=== PATIENT | male | born 1975 | race Caucasian/White ===

== ENCOUNTER → 2017-10-18 15:38 | Outpatient (REF) | payer SELFPAY ==
[2017-10-18 16:20] LABS: Add Manual Diff / Slide Review NO; Basophils Percent Auto 0.4 % (0-2); Eosinophils Percent Auto 3.3 % (2-4); Hematocrit 44.4 % (41-53); Hemoglobin 15.8 g/dL (13.5-17.5); Mean Corpuscular HGB Conc 35.5 % (30-36); Mean Corpuscular Hemoglobin 33.6 PG (26-34); Mean Corpuscular Volume 94.8 fL (80-100); Monocytes Percent Auto 8.3 % (3-14); Neutrophils Absolute Auto 5 /uL (3000-5900); Platelet Count 198 X10^3/uL (150-400); Red Blood Cell Count 4.68 X10^6/uL (4.5-5.9); Red Cell Distribution Width 12.8 % (11.6-14.8); White Blood Cell Count 7.8 X10^3/uL (4.5-11.0)
== END ==
LOC: LAB 15:38
DX: Z00.00 Encounter for general adult medical examination without abnormal findings (principal)
CPT/HCPCS: 85025

== ENCOUNTER 2020-10-29 07:42 | Outpatient (RCR) | payer OTHER, SELFPAY ==
--- NOTE | 2020-10-29 13:22 | PT.OIE ---
Current Diagnoses Strain of muscle, fascia and tendon at neck level, initial encounter (10/29/20) Strain of muscle, fascia and tendon at neck level, subsequent encounter (10/29/20) Strain of muscle and tendon of back wall of thorax, initial encounter (10/29/20) Strain of muscle, fascia and tendon of lower back, initial encounter (10/29/20) Visit Care Team Role Provider Type Samson Bradford MD Attending Provider Non-Staff Referring Provider Specialty: Family Practice Address: [address] [place] [address], [facility], [place] [address], [place], [facility] Email: Physical Therapy Initial Evaluation PT-OP-A Visit Information Start: 10/29/20 12:53 Freq: Status: Active Protocol: Document 10/29/20 12:54 OF (Rec: 10/29/20 13:21 OF [id number]) Out-Patient Physical Therapy Visit Information Visit Information Visit Type Initial Evaluation Visit Start Time 08:05 Visit Stop Time 08:52 Total Visit Minutes 47 Visit Number 1 Evaluation Information Evaluation Date 10/29/20 PT-OP-B Current Condition Start: 10/29/20 12:53 Freq: Status: Active Protocol: Document 10/29/20 12:54 OF (Rec: 10/29/20 13:21 OF [id number]) Current Condition History of Current Condition Onset Date 08/22/20 History of Current Condition Pt works at a [id number]. He states he was cleaning a tank while walking he slipped and fell face first onto the floor . He denies LOC or hitting his head. States he has been receiving tx at another clinic for whiplash Prior Treatments and Tests prior tx at separate clinic, notes not available at time of evaluation. Treatment Goals Patient/Caregiver Goals get back to normal Prior Functional Status Baseline Function- ADL's Independent Baseline Function- Mobility Independent Baseline Function- Work/School I within community, enjoys fishing Current Functional Impairments (Reported) Functional Limitations- Work/School pt states he has been on light duty since accident PT-OP-C Subjective Start: 10/29/20 12:53 Freq: Status: Active Protocol: Document 10/29/20 12:54 OF (Rec: 10/29/20 13:21 OF [id number]) OP-PT Subjective Patient Comments Patient Comments Pt states my lower back is fine, my arms are fine, I have my own stretches I do. My neck is getting better, I only get headaches when I drive. Patient Reported Progress Improving Patient Questionnaires Neck Disability Index Neck Disability Index Impairment 40 to 59% Impaired (Score 20- 29) OP-PT Pain Assessment Pain Assessment Grid Paper Pain Assessment Grid Completed Yes: neck, mid back, lumbar. Pt denies pain upon assessment , states it can be 8 Home Pain Medication Use Pain Medications Used Yes: occasional Aleve, limited relief PT-OP-H Neuro Start: 10/29/20 12:53 Freq: Status: Active Protocol: Document 10/29/20 12:54 OF (Rec: 10/29/20 13:21 OF [id number]) Sensation Evaluation Gross Sensation Gross Sensation WNL Comments Summary Comments Pt has normal sensation Bilat UE, reports occasional tingling in hands if he drives for a long time. Therapist unable to reproduce symptoms with cervical positoining, neural tension testing. He states he may have arthritis. PT-OP-K Range of Motion Start: 10/29/20 12:53 Freq: Status: Active Protocol: Document 10/29/20 12:54 OF (Rec: 10/29/20 13:21 OF [id number]) Cervical Spine Range of Motion Cervical Spine Active Testing Position Sitting Flexion 85 Extension 70 Rotation Left 75 Rotation Right 75 Lateral Flexion Left 30 Lateral Flexion Right 35 Comments no pain with ROM PT-OP-L Special Tests Start: 10/29/20 12:53 Freq: Status: Active Protocol: Document 10/29/20 12:54 OF (Rec: 10/29/20 13:21 OF [id number]) Special Tests Cervical Spine Special Tests Spurling's Test Test Results Negative PT-OP-M Strength Start: 10/29/20 12:53 Freq: Status: Active Protocol: Document 10/29/20 12:54 OF (Rec: 10/29/20 13:21 OF [id number]) Cervical Spine Strength Cervical Spine Manual Muscle Testing Testing Position Sitting Flexion (C1-2) 5 Normal Extension 5 Normal Rotation Left 5 Normal Rotation Right 5 Normal Lateral Flexion Left (C3) 5 Normal Lateral Flexion Right (C3) 5 Normal Shoulder Strength Shoulder Manual Muscle Testing Right Flexion 5 Normal Extension 5 Normal Abduction (C5) 5 Normal Adduction 5 Normal External Rotation 5 Normal Internal Rotation 5 Normal Horizontal Abduction 5 Normal Horizontal Adduction 5 Normal Left Flexion 5 Normal Extension 5 Normal Abduction (C5) 5 Normal Adduction 4+ Good+ External Rotation 5 Normal Internal Rotation 5 Normal Horizontal Abduction 5 Normal Horizontal Adduction 5 Normal Elbow/Forearm Strength Elbow and Forearm Manual Muscle Testing Right Flexion (C6) 5 Normal Extension (C7) 5 Normal Pronation 5 Normal Supination 5 Normal Left Flexion (C6) 5 Normal Extension (C7) 5 Normal Pronation 5 Normal Supination 5 Normal Hand Nursing Unit Manager/Pinch Strength Hand Dominance Hand Dominance Right PT-OP-Q Treatments Start: 10/29/20 12:53 Freq: Status: Active Protocol: Document 10/29/20 12:54 OF (Rec: 10/29/20 13:21 OF [id number]) Therapeutic Exercises Supine Exercises chin tucks Side bilateral Reps/Minutes [id number] Comments demo for proper recruitment/ ROM Standing Exercises shoulder rows Side bilateral Resistance TB 3 Reps/Minutes 3x10 Comments focus for eccentric control Self-Care/Home Management Treatment Education Patient Education Body Mechanics,Home Exercise Program PT-OP-T Assessment and Plan Start: 10/29/20 12:53 Freq: Status: Active Protocol: Document 10/29/20 12:54 OF (Rec: 10/29/20 13:21 OF [id number]) Physical Therapy Assessment Rehab Potential Rehabilitation Potential Good Evaluation Complexity Number of Personal Factors/Comorbidities 1-2 Number of Body Systems Impaired 1-2 Clinical Presentation at Evaluation Stable Impairments Impairments Pain Other Impairments pain denied upon assessment, rated 8/10 when present Assessment Summary Assessment Mr. Fox is a 45 YO male referred for continued physical therapy after completing 11 visits at another clinic. He fell ~ 60days ago landing face first, he has had neck/mid and low back pain since. He denies pain today. He demonstrates normal ROM of C spine, normal UE strength and sensation Bilat. He states his low back and arms are fine and that he performs his own stretches. He has no further need for skilled intervention. 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 Physical Therapy Plan Frequency and Duration Frequency of Treatment evaluation only Plan of Care Start Date 10/29/20 Next Visit Focus/Plan Next Visit Plan Evaluation only
--- NOTE | 2020-10-29 13:22 | PT.OPPOC ---
Physical, Occupational & Speech Therapy At [facility] Current Diagnoses Strain of muscle, fascia and tendon at neck level, initial encounter (10/29/20) Strain of muscle, fascia and tendon at neck level, subsequent encounter (10/29/20) Strain of muscle and tendon of back wall of thorax, initial encounter (10/29/20) Strain of muscle, fascia and tendon of lower back, initial encounter (10/29/20) Visit Care Team Role Provider Type Samson Bradford MD Attending Provider Non-Staff Referring Provider Specialty: Family Practice Address: [address] [place] [address], [facility] [address], [place], [address] Email: Plan Of Care PT-OP-T Assessment and Plan Start: 10/29/20 12:53 Freq: Status: Active Protocol: Document 10/29/20 12:54 OF (Rec: 10/29/20 13:21 OF [id number]) Physical Therapy Assessment Rehab Potential Rehabilitation Potential Good Evaluation Complexity Number of Personal Factors/Comorbidities 1-2 Number of Body Systems Impaired 1-2 Clinical Presentation at Evaluation Stable Impairments Impairments Pain Other Impairments pain denied upon assessment, rated 8/10 when present Assessment Summary Assessment Mr. Fox is a 45 YO male referred for continued physical therapy after completing 11 visits at another clinic. He fell ~ 60days ago landing face first, he has had neck/mid and low back pain since. He denies pain today. He demonstrates normal ROM of C spine, normal UE strength and sensation Bilat. He states his low back and arms are fine and that he performs his own stretches. He has no further need for skilled intervention. 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 Physical Therapy Plan Frequency and Duration Frequency of Treatment evaluation only Plan of Care Start Date 10/29/20 Next Visit Focus/Plan Next Visit Plan Evaluation only Plan of Care Dates Plan of Care Start Date 10/29/20 Electronically Signed by: Randy Obrien, PT 10/29/20 [id number] Please Sign and Return: I have reviewed this Plan of Care and certify that the skilled therapy services above are required to meet the patient?s needs. Physician Signature Date Printed Name and Credentials Clinical Instructor Signature Printed Name and Credentials
== END 2020-10-30 08:44 | disposition home or self-care (01) ==
LOC: PHYS 07:42
PROVIDERS: Referring Provider Physical Medicine & Rehabilitation; Visit Provider Physical Medicine & Rehabilitation
DX: S29.012A Strain of muscle and tendon of back wall of thorax, initial encounter (principal); S39.012A Strain of muscle, fascia and tendon of lower back, initial encounter; S16.1XXA Strain of muscle, fascia and tendon at neck level, initial encounter; S16.1XXD Strain of muscle, fascia and tendon at neck level, subsequent encounter
CPT/HCPCS: 97161